=== PATIENT | male | born 1935 | race Caucasian/White ===

== ENCOUNTER → 2021-10-11 | Outpatient (CLI) | payer OTHER ==
--- NOTE | 2021-10-12 04:11 | MR ---
EXAMINATION TYPE: MR hip LT wo con DATE OF EXAM: 10/11/2021 COMPARISON: None HISTORY: Left hip pain x 4 years. Multiplanar multiecho imaging of the pelvis and left hip with no contrast. There are mild bilateral hip joint effusions. The proximal femurs show normal signal pattern. No evid ence of avascular necrosis. Acetabular appear intact. Bladder distends smoothly. No free fluid in the pelvis. No pelvic mass. There is increased fluid signal along the iliopsoas muscles between the muscle and the iliac bone. IMPRESSION: There is bilateral hip joint effusion consistent with some synovitis. No evidence of avascular necros is. No significant arthritic disease. No fracture. There is some edema along the left and right iliac bone adjacent to the iliopsoas muscle of uncertain significance.
== END | disposition home or self-care (01) ==
LOC: RADMRIMAIN 10:11 → EDSEX 10:11
PROVIDERS: ATTEND Nurse Practitioner Family
DX: M25.459 Effusion, unspecified hip (principal); R60.9 Edema, unspecified